=== PATIENT | male | born 1960 | race Caucasian/White ===

== ENCOUNTER 2018-01-05 02:07 | Emergency (ER) | payer MEDICAID ==
[~2018-01-05] VITALS: Ht 162.6 cm; Wt 73.6 kg
[~2018-01-05 02:07] MED LIST: COLACE; MIRALAX; OMEPRAZOLE
[2018-01-05] MEDS ORDERED: ACETAMINOPHEN 325MG TABLET ONE (02:30)
[2018-01-05 05:22] VITALS: BP 113/67
== END 2018-01-05 05:33 | disposition home or self-care (01) ==
LOC: ER 02:07
DX: B34.9 Viral infection, unspecified (principal)
CPT/HCPCS: 71045; 87070; 87430; 87804; 99285